=== PATIENT | female | born 1990 | race Caucasian/White ===

== ENCOUNTER 2020-11-13 19:15 | Inpatient (IN) | payer BC ==
[~2020-11-13] VITALS: Ht 162.6 cm; Wt 90.7 kg
[2020-11-13 23:48] LABS: HEMOGLOBIN 12.2 gm/dl (12.3-15.3); RED BLOOD COUNT 4.25 M/UL (4.00-5.10); WHITE BLOOD COUNT 14.2 K/UL (4.5-11.0)
[2020-11-14 00:11] LABS: BUN/CREATININE RATIO 14 (0-10)
[2020-11-14 09:51] LABS: HEMOGLOBIN 10.9 gm/dl (12.3-15.3)
== END 2020-11-14 13:09 | disposition home or self-care (01) | DRG 806 ==
LOC: GENOP 19:15 → OB 23:31
PROVIDERS: Obstetrics & Gynecology; ADMIT Obstetrics & Gynecology
PROC: 4A1HX4Z Monitoring of Products of Conception, Cardiac Electrical Activity, External Approach (ICD-10-PCS; 2020-11-13)
PROC: 10E0XZZ Delivery of Products of Conception, External Approach (ICD-10-PCS; principal; 2020-11-14)
PROC: 0KQM0ZZ Repair Perineum Muscle, Open Approach (ICD-10-PCS; 2020-11-14)
PROC: 10907ZC Drainage of Amniotic Fluid, Therapeutic from Products of Conception, Via Natural or Artificial Opening (ICD-10-PCS; 2020-11-14)
DX: O99.334 Smoking (tobacco) complicating childbirth (principal); F11.20 Opioid dependence, uncomplicated; Z37.0 Single live birth; F17.200 Nicotine dependence, unspecified, uncomplicated; Z3A.40 40 weeks gestation of pregnancy; O99.324 Drug use complicating childbirth; O77.0 Labor and delivery complicated by meconium in amniotic fluid; O70.1 Second degree perineal laceration during delivery; Z20.822 Contact with and (suspected) exposure to COVID-19
CPT/HCPCS: 36415; 80053; 80307; 81001; 82800; 85014; 85018; 85025; 90472; 90715; J2590; J3010; U0002